=== PATIENT | female | born 1965 | race Caucasian/White ===

== ENCOUNTER 2019-04-11 09:00 | Day surgery (SDC) | payer BC ==
[~2019-04-11 09:00] MED LIST: ATIVAN1 MG PO; CYCLOBENZAPRINE10 MG PO; VALTREX500 MG PO; ZOLOFT100 MG PO; ZOLOFT25 MG PO; ZYRTEC10 MG PO
[2019-04-11 09:25] LABS: HEMATOCRIT 42.8 % (36.0-48.0); HEMOGLOBIN 14.9 g/dL (12-16); MCH 32.1 pg (26.0-34.0); MCHC 34.8 g/dL (31.0-37.0); MCV 92.2 fL (80.0-100.0); MEAN PLATELET VOLUME 10.5 fL (7.4-10.4); RBC 4.64 10x6/uL (4.00-5.40); WBC 6.4 10x3/uL (4.8-10.8)
[2019-04-11] MEDS ORDERED: HYDROCHLOROTHIA50 MG PO (10:55)
[2019-04-11 11:01] VITALS: BP 124/67; BMI 24.5
[2019-04-11 13:14] LABS: HCG SERUM NEGATIVE (NEGATIVE)
--- NOTE | 2019-04-11 14:00 | NUR ---
CALLED RT TO GET EKG AT THIS TIME
--- NOTE | 2019-04-11 14:04 | NUR ---
RT IS HERE GETTING EKG
--- NOTE | 2019-04-11 14:11 | NUR ---
SHOWED NEW EKG TO . HE VOICED NO CHANGE IN EKG
--- NOTE | 2019-04-11 14:20 | NUR ---
REC'D FROM [facility]. FAMILY AT BEDSIDE. FL TRAY BROUGHT TO PATIENT.
--- NOTE | 2019-04-11 14:50 | NUR ---
TOLERATED FL DIET. DENIES NEEDS. NO C/O VOICED.
--- NOTE | 2019-04-11 16:35 | NUR ---
IV DC'D WITH CATHETER INTACT. WRITTEN AND VERBAL DC INST. GIVEN TO PATIENT ALONG WITH RX. VERBALIZED UNDERSTANDING.
--- NOTE | 2019-04-11 16:40 | NUR ---
DC'D HOME WITH FAMILY VIA PRIVATE VEHICLE. STABLE AT TIME OF DC.
--- NOTE | 2019-04-12 14:43 | OP ---
PATIENT NAME: SHEEBA ANDERSON MEDICAL RECORD: [id number] :67 [facility]ATION:[facility] ADMISSION DATE: SURGEON: PELNO RETANA MD DATE OF OPERATION: 04/11/2019 PREOPERATIVE DIAGNOSES: Chronic tonsillitis and tonsillar asymmetry. POSTOPERATIVE DIAGNOSES: Chronic tonsillitis and tonsillar asymmetry. PROCEDURE: Tonsillectomy. SURGEON: Pelon Retana MD ANESTHESIA: General orotracheal. BLOOD LOSS: Less than 10 cc. SPECIMENS: Right and left tonsil. COMPLICATIONS: None. DISPOSITION: Recovery, stable. FINDINGS: Right tonsil was much, much larger than the left, 3-4+ in size; left tonsil was 1+. The tonsils really on both sides actually appeared to be with some white necrotic almost type material inside the tonsil, possibly just a tremendous amount of actinomycosis. DESCRIPTION OF PROCEDURE: She was brought to the operating room, placed in the supine position, and sedated and intubated by anesthesia. Eyes were taped. Table was turned 90 degrees. Head drapes were applied. She was positioned for tonsillectomy. Using a headlight, a Honorio-Javier mouth gag was carefully inserted and elevated on a towel on her chest with excellent view of both tonsils. The red rubber catheter was then placed to the right side of the nose and the pharynx and grasped with tonsil clamp to retract the soft palate. Using a mirror, the nasopharynx was examined. The choanae and eustachian tube orifices were normal. The nasopharynx was smooth and normal with no inflammation, drainage, or adenoid tissue. The red rubber catheter was let down and removed. The right tonsil was grasped at the superior pole with a straight Allis clamp. Spatula tip cautery on a setting of 10 was used to dissect out the tonsil along its capsule, preserving the anterior and posterior tonsillar pillar. This was sent fresh in a separate specimen container. Suction cautery on a setting of 18 was used to control minimal oozing. Then, the left tonsil was removed. It was much smaller, but actually on taking out, had a similar consistency and appeared to be chronically inflamed. Spatula tip cautery on a setting of 9 was used to remove that tonsil and then suction cautery on a setting of 18 was used to control minimal oozing. Then, both sides of the nose were irrigated with saline. The pharynx was suctioned. Tonsillar fossae were agitated. Suction cautery on a setting of 18 was used to make sure everything was clean and dry. Once that was the case, the Honorio-Javier mouth gag was let down and removed. She was awakened, extubated, and transported to recovery in good condition. No complications. TRANSINT:[id number] Voice Confirmation ID: [id number] DOCUMENT ID: [id number] OPERATIVE REPORT [id number] SHEEBA ANDERSON, PELON MCMILLAN at 1443 CC: [id number] DICTATION DATE: 04/11/19 1337 FASHION DIRECTOR: 04/11/19 1438 [facility] 04/11/19 [address] [place] [address]
--- NOTE | 2019-04-12 14:43 | HP ---
PATIENT: SHEEBA ANDERSON MEDICAL RECORD: [id number] ACCOUNT: [id number] LOCATION:[facility] : 67 ADMISSION DATE: 04/11/19 PCP: Undefined Provider HISTORY AND PHYSICAL EXAMINATION HISTORY OF PRESENT ILLNESS: Ms. Anderson is 54 years old. She has been having a problem with chronic tonsillitis and tonsillar asymmetry. She is being admitted for tonsillectomy. PAST MEDICAL HISTORY: Includes hypertension. PAST SURGICAL HISTORY: Includes surgery on her right heel, cholecystectomy. CURRENT MEDICATIONS: Sertraline, hydrochlorothiazide, lorazepam, cyclobenzaprine, hyoscyamine, Zyrtec, Flonase, Valtrex. ALLERGIES: SULFA. PHYSICAL EXAMINATION: GENERAL: She is healthy-appearing, developmentally normal. FACE: Normal, symmetric, no lesions. EYES: Sclerae and conjunctivae are normal. EARS: Canals and TMs are normal. NOSE: No masses, polyps or drainage. ORAL CAVITY, OROPHARYNX: A 4+ tonsil on the right and 2+ on the left. NECK: No masses, no adenopathy. CHEST: Clear. CARDIOVASCULAR: Regular rate and rhythm, no murmur. EXTREMITIES: Normal. IMPRESSION: Chronic pharyngitis with significant tonsillar asymmetry. PLAN: Tonsillectomy. TRANSINT:[id number] Voice Confirmation ID: [id number] DOCUMENT ID: [id number] PELON ROQUE MD at 1443 CC: [id number] DICTATION DATE: 04/07/19 1536 S[employer]IOR NETWORK ARCHITECT: 04/07/19 1549 [facility] 04/11/[address] [address]
== END 2019-04-11 16:40 | disposition home or self-care (01) ==
LOC: D.OPS 09:00 → D.PAN 10:55 → D.OPS 11:05 → D.PAN 11:05 → D.OPS 11:15
PROVIDERS: Anesthesiology; ATTEND Otolaryngology
DX: J35.01 Chronic tonsillitis (principal)